=== PATIENT | male | born 1955 | race Caucasian/White ===

== ENCOUNTER 2017-02-08 13:55 | Inpatient (IN) | payer BC, SELFPAY ==
[2017-01-26 17:19] LABS: ASCORBIC ACID (UR NOT ORDER) NEG (NEG); BILIRUBIN, URINE NEGATIVE (NEG); KETONE, URINE NEGATIVE (NEG); LEUKOCYTE ESTERASE(NOT OR NEG (NEG); WBC (NOT ORDERED) (RFLEX) 1 (0-5)
[2017-01-26 17:27] LABS: BASOPHILS 0.3 %; BASOPHILS ABSOLUTE 0.03 10/3/uL (0.0-0.16); EOSINOPHILS 1.1 %; EOSINOPHILS ABSOLUTE 0.13 10/3/uL (0.0-0.53); HEMATOCRIT 37.3 % (40.0-51.0); IMMATURE GRANULOCYTES 0.4 %; IMMATURE GRANULOCYTES ABSOLUTE 0.05 10/3/uL (0.0-0.11); LYMPHOCYTES 23.2 %; LYMPHOCYTES ABSOLUTE 2.65 10/3/uL (0.67-4.30); MEAN CORPUS HGB CONC 32.2 g/dL (32.0-36.0); MEAN CORPUSCULAR HEMOGLOB 28.6 pg (26.0-34.0); MEAN PLATELET VOLUME 9.5 fL (9.2-13.0); MONOCYTES 8.6 %; MONOCYTES ABSOLUTE 0.98 10/3/uL (0.21-1.20); NEUTROPHILS 66.4 %; NEUTROPHILS ABSOLUTE 7.58 10/3/uL (2.02-8.40); RED CELL COUNT 4.19 10/6/uL (4.7-6.1); WHITE BLOOD CELLS 11.4 10/3/uL (4.5-10.5)
[2017-01-26 17:28] LABS: MANUAL DIFF NO %; PLATELET COUNT 289 10/3/uL (150-400)
[2017-01-26 17:32] LABS: INTERNATIONAL NORMAL RATI 1.1 UNITS (-)
[2017-01-26 17:33] LABS: PROTIME (NOT ORD) 13.7 SEC (12.0-14.5)
[2017-01-26 18:47] LABS: A/G RATIO 1.3 (0.7-1.9); ALKALINE PHOSPHATASE 63 U/L (45-117); BUN (BLOOD UREA NITROGEN) 20 MG/DL (6-23); CALCIUM, SERUM 9.5 MG/DL (8.5-10.4); CHLORIDE, SERUM 101 MMOL/L (96-112); CO2 (CARBON DIOXIDE) 27 MMOL/L (24-34); CREATININE 1.19 MG/DL (0.70-1.30); GFR AFRICAN AMERICAN 76 ML/MIN (>=60); GFR NON AFRICAN AMERICAN 66 ML/MIN (>=60); POTASSIUM, SERUM 4.5 MMOL/L (3.5-5.3); SGOT(AST) 11 U/L (5-40); SGPT(ALT) 25 U/L (5-65); SODIUM, SERUM 138 MMOL/L (135-148)
[2017-01-26 18:50] LABS: GLUCOSE, SERUM 92 MG/DL (60-99); TOTAL BILIRUBIN 0.2 MG/DL (0-1.2)
--- NOTE | ~2017-02-08 | OP ---
Record Of Operation [facility] [address] [place]. [address] NAME: MASSIMO SCHMIDT : 57 STATUS : ADM IN PAT#: [id number] AGE: 61 ADM/REG DATE : 02/08/17 MR#: [id number] REPORT SERV DATE: 02/09/17 DICTATED BY: CANDACE SHAW DATE: 02/09/17 REPORT STATUS : Draft TRANSCRIBED BY: MODL DATE: 02/09/17 DATE OF PROCEDURE: 02/08/2017 PREOPERATIVE DIAGNOSIS: Right knee sepsis. POSTOPERATIVE DIAGNOSIS: Right knee sepsis. PROCEDURE: Right knee resection. INDICATIONS: This is a 61-year-old male who has had multiple surgeries starting in [place] and worked his way down here and has had signs and symptoms of progressive knee pain and swelling and now with an aspirate that suggested infected knee from his previous procedure, I believe, in 2014. He was indicated for a right total knee resection. DESCRIPTION OF PROCEDURE: The patient was taken to the operating room and placed supine on the table in normal fashion without incident. General anesthetic was induced per the anesthesiologist. The patient was carefully positioned, padded, prepped, and draped in a normal sterile fashion. Right lower extremity was elevated. Tourniquet inflated to 350. Sharp dissection was made through the old incision with electrocautery through the fat. Sharp quad splitting approach was carried out. The patella was subluxed and a purulent- appearing fluid was sent for cultures and Gram stain. Complete synovectomy was performed. The femoral tibial components were easily removed with flexible osteotome. Cement was meticulously debrided. The cuts were freshened up with an oscillating saw, and the patella was cut first by removing the patellar component then debriding the cement and being recut. All surfaces were meticulously debrided with curette as well as copious irrigation with pulsatile lavage x3 liters. We then completely redraped, re-gowned with a new setup, irrigated with three more liters of pulsatile lavage. An antibiotic-laden cement block was fashioned from three premixed packages of antibiotic cement with 2 g of vancomycin added, and in a doughy phase, a cement block was placed while holding the leg in traction. The wound was dressed sterilely. The patient was awakened and taken to the postanesthesia care unit without incident. COMPLICATIONS: None. SPECIMENS: Removed components and cultures. ESTIMATED BLOOD LOSS: Trace. WTB/MODL Humaira Shaw M.D. / [id number] Record Of [address] [address] NAME: MASSIMO SCHMIDT : 57 STATUS : ADM IN [facility]#: [id number] AGE: 61 ADM/REG DATE : 02/08/17 MR#: [id number] REPORT SERV DATE: 02/09/17 DICTATED BY: CANDACE SHAW DATE: 02/09/17 REPORT STATUS : Draft TRANSCRIBED BY: PRAMOD DATE: 02/09/17 CC: Robby Santoro MD
--- NOTE | ~2017-02-08 | DS ---
Discharge Summary [facility] [address] [place]. [address] NAME: MASSIMO SCHMIDT : 57 STATUS : DIS IN PAT#: [id number] AGE: 61 ADM/REG DATE : 02/08/17 MR#: [id number] REPORT SERV DATE: 02/17/17 DICTATED BY: CANDACE SHAW DATE: 02/16/17 REPORT STATUS : Draft TRANSCRIBED BY: PRAMOD DATE: 02/16/17 Data Collection from hospitalization DISCHARGE DIAGNOSIS(ES): 1. Right knee sepsis. 2. Chronic kidney disease. 3. Hypertension. 4. Diabetes mellitus. 5. Obstructive sleep apnea. CONSULTATIONS: Siddharth Machado M.D. PROCEDURES PERFORMED: Right knee resection, 02/08/2017. PATHOLOGY: Right knee resection, bone and soft tissue with granulation tissue with mixed inflammation and fibroinflammatory material, prominent reactive changes, viable bone fragments with acute fibroinflammatory material, and reactive changes with areas of fatty degeneration, orthopedic appliance, see gross examination. MEDICATIONS: Bumex 2 mg every morning, vitamin D 5000 units daily, Colace 100 mg twice daily, ferrous sulfate 300 mg with breakfast and supper, Flonase one spray each nostril daily, Neurontin 400 mg three times a day, Glucotrol-XL 10 mg twice daily, Glucophage 1000 mg twice daily, Lantus SoloSTAR 30 units subcutaneously at bedtime, levothyroxine, sodium 50 mcg every morning, Zyrtec 10 mg at bedtime, multiple vitamin one daily, Protonix 40 mg before breakfast, Pravachol 20 mg at bedtime, Aldactone 50 mg daily, Carafate 1 g before meals and at bedtime, Coumadin sliding scale as directed, Apresoline 25 mg as directed, clindamycin 900 mg IV every 8 hours as directed, Mylanta 30 mL as needed, Dulcolax 15 mg orally as needed, Dilaudid 2 to 4 mg every three hours as needed, milk of magnesia 30 mL as needed, Zofran 4 mg every four hours as needed, MiraLAX powder one packet twice daily as needed, Zanaflex 4 mg three times daily as needed, and Lotensin 20 mg twice daily. CONDITION AT DISCHARGE: Upon discharge, he did appear to be doing well and had no complaints. DISPOSITION: He had been discharged with transfer to [facility] to continue an ADA diet with activity as discussed. He was to continue with physical therapy and occupational therapy. He was to follow up with Dr. Siddharth Machado on 03/29/2017. HOSPITAL COURSE: This 61-year-old male was seen in the clinic with followup of right knee pain, bone scan and lab results, synovectomy 09/10/2016, and left total knee revision arthroplasty. After evaluation in the clinic, surgery had been discussed with the patient. He was agreeable to proceed. He was admitted for this and further treatment. Upon admission to the hospital, he had been taken to the operating room where he did undergo the above procedure. He tolerated this well and was transferred to the recovery room. On postop day #1, he did appear to be doing well and had been evaluated by both Occupational and Physical Therapy. He was continued on supportive care. He did have some complaints of pain. On postop day #2, he had been evaluated by Dr. Siddharth Machado for antibiotic management and he was to continue with empiric vancomycin and he did recommend adding a second antibiotic Discharge Summary [address] [address] NAME: MASSIMO SCHMIDT : 57 STATUS : DIS IN PAT#: [id number] AGE: 61 ADM/REG DATE : 02/08/17 MR#: [id number] REPORT SERV DATE: 02/17/17 DICTATED BY: CANDACE SHAW DATE: 02/16/17 REPORT STATUS : Draft TRANSCRIBED BY: PRAMOD DATE: 02/16/17 as part of his empiric six-week course of therapy to better cover anaerobes and Propionibacterium among other possibilities. His pain medications were adjusted and he had been placed instead on Dilaudid and he did state this had helped. On 02/11/2017, he was noted to have a temperature at 99.2. However, his vital signs were otherwise stable. His operative cultures had remained negative. His WBCs were noted to be at 11.2. He had no nausea noted, but he did have some increase in pain upon moving to the chair. He did remain in stable condition, and as he continued to do well, he did undergo PICC line insertion and was then discharged with the above instructions. Information collected by: Estela Chinchilla.I.T. I submit the above information as my discharge summary. JUANCHO/JORDYNL Humaira Shaw M.D. / [id number] CC: Robby Santoro MD [facility]
--- NOTE | ~2017-02-08 | CN ---
Consultation Report [facility] [address] [place]. [address] NAME: MASSIMO SCHMIDT : 57 STATUS : ADM IN PAT#: [id number] AGE: 61 ADM/REG DATE : 02/08/17 MR#: [id number] REPORT SERV DATE: 02/10/17 DICTATED BY: SAROJ MACHADO DATE: 02/10/17 REPORT STATUS : Draft TRANSCRIBED BY: MODL DATE: 02/10/17 INFECTIOUS DISEASE CONSULT DATE OF CONSULTATION: 02/10/2017 REASON FOR CONSULTATION: Right total knee arthroplasty infection. HISTORY OF PRESENT ILLNESS: This is a 61-year-old man with a past medical history notable for hypertension, hyperlipidemia, sleep apnea, gastroesophageal reflux, hypothyroidism, chronic kidney disease, and osteoarthritis. In 11/2009, he underwent left total knee arthroplasty and that joint has always done very well. In 04/2010, he underwent right total knee arthroplasty. These surgeries were done by Dr. Mujica in [place]. The patient states that, he always had trouble with the right knee with persistent pain and swelling ever since the surgery. Eventually, this led him to see Dr. Lama, and in 04/2014, the patient underwent right knee patellar revision and removal of an osteophyte for concern about possible ruptured quadriceps tendon. The tendon was fine, but there was a large osteophyte that was causing problems there, which was removed. The patella was revised. I do not have any culture data from that time except there is a culture from 04/29/2014 for an AFB stain of bone that is negative. The patient says, he did better for a little while, but then he again started getting swelling of the knee along with some redness and what he calls blister formation and pain. The patient had arthrocentesis of the joint in 07/2014 and then again in 02/2016, which showed 1200 and 73448 white blood cells respectively, mostly neutrophils with negative crystal analysis and negative cultures. Arthrocentesis again in 03/2016 which included AFB fungal and anaerobic cultures also returned negative. Because of the ongoing difficulties, he was having the patient underwent revision arthroplasty on 03/30/2016, that operative note is reviewed. The pathology report from that procedure showed synovitis with mixed inflammation. I should note too that the pathology from 04/2014 surgery showed papillary synovial hyperplasia with exuberant synovial histiocytic and giant cell reaction with negative special stains. Since the revision, the patient though has continued to have problems with pain and swelling. He again has undergone repeated arthrocentesis in June and August showing 8000 and 9000 white blood cells respectively, predominantly neutrophils. Repeat cultures in late August including AFB fungal and anaerobic cultures all returned negative. Most recent arthrocentesis was on 01/24/2017 of this year. The patient has had modestly elevated inflammatory markers including on 01/14/2017 with a sedimentation rate of 38 and C-reactive protein of 98. He denies any fevers, chills, or sweats. The patient was brought into the hospital though on 02/08/2017 for resection of the hardware. The operative note describes purulent appearing fluid which was sent for cultures. A complete synovectomy was done. An antibiotic laden cement block was placed with 2 g of vancomycin. Culture from that surgery is negative to date. AFB, fungal, and anaerobic cultures have also been sent. The patient has been afebrile. The patient again denies any problems with his left total knee arthroplasty. He denies any other infection issues. He denies any skin rash, oral ulcers, other joint issues, chronic headaches, or other ongoing symptoms. Consultation Report [place] [id number] [facility] [place]. [address] NAME: MASSIMO SCHMIDT : 57 STATUS : ADM IN [facility]#: [id number] AGE: 61 ADM/REG DATE : 02/08/17 MR#: [id number] REPORT SERV DATE: 02/10/17 DICTATED BY: SAROJ MACHADO DATE: 02/10/17 REPORT STATUS : Draft TRANSCRIBED BY: PRAMOD DATE: 02/10/17 PAST MEDICAL HISTORY: As outlined above. He has been followed for his chronic kidney disease, by Dr. Coyne and this has been stable. He has also had bilateral inguinal hernia repair and right carpal tunnel surgery, and cholecystectomy. ALLERGIES: SULFA CAUSES ITCHING. HE ALSO CANNOT TAKE NONSTEROIDAL ANTI-INFLAMMATORY DRUGS. PRESENT MEDICATIONS: Include Bumex, vitamin D, Colace, iron, Flonase, Neurontin, Glucotrol, hydralazine, insulin sliding scale, Synthroid, Claritin, multivitamins, OxyContin, Protonix, Pravachol, Aldactone, Carafate, and Coumadin sliding scale. SOCIAL HISTORY: He is a retired [employer]. Past smoker. Nondrinker. Lives with his who works. He has pet dog and cat. No other significant animal contact. No known exposure to tuberculosis. He has never traveled outside the country. No particular hobbies or other exposure history. FAMILY HISTORY: Unremarkable with regard to the present knee problem. No history of inflammatory arthritis. REVIEW OF SYSTEMS: As outlined above. In addition, no headache, chest pain, shortness of breath, nausea, vomiting, diarrhea, genitourinary symptoms, easy bleeding, or bruising. PHYSICAL EXAMINATION: VITAL SIGNS: The patient weighs 121 kg. He is afebrile. Blood pressure 139/63, pulse 84, respiratory rate 16. GENERAL: He is alert, in no acute distress. HEAD AND NECK: Extraocular movements intact. The oral cavity is clear. No ulcers. No thrush. NECK: Supple. LUNGS: Clear to auscultation. CARDIAC: Regular rate and rhythm. Normal S1, S2 without murmur, gallop, or rub. ABDOMEN: Soft and nontender. No masses. EXTREMITIES: The right knee is in a postoperative immobilizer. Left lower extremity has a compression stocking. The patient has a peripheral IV without phlebitis. SKIN: Without rash. LABORATORY STUDIES: White blood cell count 10.5, hemoglobin 10.3, platelets 231. Hemoglobin A1c 7.6. Creatinine 0.98. 01/26 liver function tests are normal. Microbiology studies as noted above. Chest x-ray is negative. IMPRESSION: Right total knee arthroplasty infection, recurrent, despite revision arthroplasty in 03/2016. The story here suggests the possibility of a pathogen that is difficult to culture. He has had multiple cultures since 2013 including AFB fungal and anaerobic cultures which have never grown anything. Must also consider the possibility of a noninfectious inflammatory process here, but the fact that his left total knee arthroplasty Consultation Report [address] [place]. [address] NAME: MASSIMO SCHMIDT : 57 STATUS : ADM IN [facility]#: [id number] AGE: 61 ADM/REG DATE : 02/08/17 MR#: [id number] REPORT SERV DATE: 02/10/17 DICTATED BY: SAROJ MACHADO DATE: 02/10/17 REPORT STATUS : Draft TRANSCRIBED BY: PRAMOD DATE: 02/10/17 is always done well, would go against that including against any sort of hypersensitivity to the arthroplasty components. PLAN: 1. We will continue empiric vancomycin. 2. I may add a second antibiotic as part of his empiric 6-week course of therapy to better cover anaerobes and Propionibacterium am among other possibilities. 3. We will have the microbiology lab hold the aerobic anaerobic cultures for fourteen days. BRENDON/MODL Saroj Machado M.D. / [id number] CC: Robby Santoro MD
[~2017-02-08 13:55] MED LIST: APRES25 PO; ASAB PO; BACTRONASA NAS; BUM2 PO; C1; C5; C5 PO; CLARIT10 PO; D 5000 PO; DEPO-TESTOS100 MG/M1 IM; FARXIGA PO; FARXIGA10 PO; FLEX PO; FLONASE NAS; GARLIC; GARLIC PO; GINGER ROOT PO; GLUCOPHAGE1000 MG PO; GLUCXL10 PO; INSPRA50 MG PO; JANUVIA100 MG PO; LANTUSCART SC; LEVOTHYROXIN50 MCG PO; LOTE20 PO; MULTIPLE VIT PO; NEUR400 PO; NORCO1 TAB PO; PCET PO; PRAVAC PO; PROTONIX PO; SPIRO50 PO; SUCR PO; VITAMIN D31000 UNIT PO; ZANAFLEX 4 MG TA4 MG PO; ZYRTEC ALLGY10 MG PO
[2017-02-09 05:25] LABS: HEMOGLOBIN 10.8 g/dL (13.6-17.8)
[2017-02-09 05:26] LABS: HEMATOCRIT 33.3 % (40.0-51.0)
[2017-02-09 05:30] LABS: INTERNATIONAL NORMAL RATI 1.2 UNITS (-); PROTIME (NOT ORD) 15.4 SEC (12.0-14.5)
[2017-02-09 05:42] LABS: CALCIUM, SERUM 8.8 MG/DL (8.5-10.4); CHLORIDE, SERUM 102 MMOL/L (96-112); CO2 (CARBON DIOXIDE) 24 MMOL/L (24-34); GFR AFRICAN AMERICAN 63 ML/MIN (>=60); GFR NON AFRICAN AMERICAN 54 ML/MIN (>=60); POTASSIUM, SERUM 5.1 MMOL/L (3.5-5.3); SODIUM, SERUM 136 MMOL/L (135-148)
[2017-02-09 05:43] LABS: BUN (BLOOD UREA NITROGEN) 16 MG/DL (6-23); GLUCOSE, SERUM 338 MG/DL (60-99)
[2017-02-10 05:10] LABS: INTERNATIONAL NORMAL RATI 1.2 UNITS (-); PROTIME (NOT ORD) 15.5 SEC (12.0-14.5)
[2017-02-10 05:12] LABS: BASOPHILS 0.2 %; BASOPHILS ABSOLUTE 0.02 10/3/uL (0.0-0.16); EOSINOPHILS ABSOLUTE 0.21 10/3/uL (0.0-0.53); HEMATOCRIT 32.3 % (40.0-51.0); HEMOGLOBIN 10.3 g/dL (13.6-17.8); IMMATURE GRANULOCYTES 0.6 %; IMMATURE GRANULOCYTES ABSOLUTE 0.06 10/3/uL (0.0-0.11); LYMPHOCYTES 17.6 %; LYMPHOCYTES ABSOLUTE 1.85 10/3/uL (0.67-4.30); MEAN CORPUS HGB CONC 31.9 g/dL (32.0-36.0); MONOCYTES 12.6 %; MONOCYTES ABSOLUTE 1.32 10/3/uL (0.21-1.20); NEUTROPHILS ABSOLUTE 7.04 10/3/uL (2.02-8.40); PLATELET COUNT 231 10/3/uL (150-400); RBC DISTRIBUTION WIDTH 15.1 % (12.0-16.0); RED CELL COUNT 3.55 10/6/uL (4.7-6.1); WHITE BLOOD CELLS 10.5 10/3/uL (4.5-10.5)
[2017-02-10 05:13] LABS: MANUAL DIFF NO %
[2017-02-10 05:27] LABS: BUN (BLOOD UREA NITROGEN) 14 MG/DL (6-23); CALCIUM, SERUM 8.9 MG/DL (8.5-10.4); CHLORIDE, SERUM 104 MMOL/L (96-112); CREATININE 0.98 MG/DL (0.70-1.30); GFR AFRICAN AMERICAN 97 ML/MIN (>=60); GFR NON AFRICAN AMERICAN 83 ML/MIN (>=60); POTASSIUM, SERUM 4.1 MMOL/L (3.5-5.3); SODIUM, SERUM 139 MMOL/L (135-148)
[2017-02-10 05:30] LABS: CO2 (CARBON DIOXIDE) 30 MMOL/L (24-34); GLUCOSE, SERUM 136 MG/DL (60-99)
[2017-02-11 04:15] LABS: HEMATOCRIT 33.7 % (40.0-51.0); HEMOGLOBIN 10.8 g/dL (13.6-17.8)
[2017-02-11 04:17] LABS: BASOPHILS 0.2 %; BASOPHILS ABSOLUTE 0.02 10/3/uL (0.0-0.16); EOSINOPHILS 3.8 %; EOSINOPHILS ABSOLUTE 0.43 10/3/uL (0.0-0.53); HEMOGLOBIN 10.6 g/dL (13.6-17.8); IMMATURE GRANULOCYTES 0.7 %; IMMATURE GRANULOCYTES ABSOLUTE 0.08 10/3/uL (0.0-0.11); LYMPHOCYTES 19.3 %; LYMPHOCYTES ABSOLUTE 2.16 10/3/uL (0.67-4.30); MEAN CORPUS HGB CONC 32.1 g/dL (32.0-36.0); MEAN CORPUSCULAR HEMOGLOB 29.1 pg (26.0-34.0); MEAN CORPUSCULAR VOLUME 90.7 fL (80-100); MEAN PLATELET VOLUME 8.8 fL (9.2-13.0); MONOCYTES ABSOLUTE 1.45 10/3/uL (0.21-1.20); NEUTROPHILS ABSOLUTE 7.04 10/3/uL (2.02-8.40); PLATELET COUNT 239 10/3/uL (150-400); RBC DISTRIBUTION WIDTH 14.6 % (12.0-16.0); RED CELL COUNT 3.64 10/6/uL (4.7-6.1); WHITE BLOOD CELLS 11.2 10/3/uL (4.5-10.5)
[2017-02-11 04:19] LABS: MANUAL DIFF NO %
[2017-02-11 04:21] LABS: INTERNATIONAL NORMAL RATI 1.4 UNITS (-); PROTIME (NOT ORD) 16.9 SEC (12.0-14.5)
[2017-02-11 04:31] LABS: BUN (BLOOD UREA NITROGEN) 13 MG/DL (6-23); CALCIUM, SERUM 8.8 MG/DL (8.5-10.4); CHLORIDE, SERUM 100 MMOL/L (96-112); CREATININE 1.08 MG/DL (0.70-1.30); GFR AFRICAN AMERICAN 86 ML/MIN (>=60); GFR NON AFRICAN AMERICAN 74 ML/MIN (>=60); GLUCOSE, SERUM 158 MG/DL (60-99); POTASSIUM, SERUM 4.3 MMOL/L (3.5-5.3); SODIUM, SERUM 138 MMOL/L (135-148)
[2017-02-11 04:32] LABS: CO2 (CARBON DIOXIDE) 35 MMOL/L (24-34)
[2017-04-08] MEDS ORDERED: JANTOVEN6 MG PO (11:25)
[2017-04-15] MEDS ORDERED: C5 PO (14:06)
[2017-04-15] MEDS ORDERED: PCET PO (14:07)
== END 2017-02-11 14:30 | DRG 464 ==
LOC: SDC/OF 13:55 → PACU 20:31 → 3SO 22:04
PROVIDERS: Nurse Practitioner; Specialist
PROC: 0SHC08Z Insertion of Spacer into Right Knee Joint, Open Approach (ICD-10-PCS; 2017-02-08)
PROC: 0SPC0JZ Removal of Synthetic Substitute from Right Knee Joint, Open Approach (ICD-10-PCS; principal; 2017-02-08 15:30)
PROC: 02HV33Z Insertion of Infusion Device into Superior Vena Cava, Percutaneous Approach (ICD-10-PCS; 2017-02-11)
PROC: 4A02X4A Measurement of Cardiac Electrical Activity, Guidance, External Approach (ICD-10-PCS; 2017-02-11)
DX: T84.53XA Infection and inflammatory reaction due to internal right knee prosthesis, initial encounter (principal); N17.9 Acute kidney failure, unspecified; I10 Essential (primary) hypertension; G47.33 Obstructive sleep apnea (adult) (pediatric); E11.9 Type 2 diabetes mellitus without complications; J44.9 Chronic obstructive pulmonary disease, unspecified; E78.5 Hyperlipidemia, unspecified; E03.9 Hypothyroidism, unspecified
CPT/HCPCS: 36415; 36569; 71020; 80048; 80053; 81001; 82962; 83036; 85014; 85018; 85025; 85610; 86850; 86900; 86901; 87015; 87070; 87075; 87102; 87116; 87205; 87641; 88300; 88304; 93005; 97116-GP; 97162-GP; 97166-GO; 97535-GO; A9270-GY; C1751; J0690; J2250; J2270; J2405; J2710; J2795; J3010; J3370